=== PATIENT | male | born 1995 | race African-American/Black ===

== ENCOUNTER → 2017-06-27 | Outpatient (CLI) | payer OTHER ==
[~2017-06-27] MED LIST: AMPH20CA3 PO
== END | disposition home or self-care (01) ==
LOC: C.LAB 01:31
DX: Z02.83 Encounter for blood-alcohol and blood-drug test (principal)

== ENCOUNTER 2017-10-03 23:57 | Emergency (ER) | payer OTHER, BC ==
[~2017-10-03] VITALS: Ht 188 cm; Wt 148.8 kg
[2017-10-04 00:06] VITALS: TEMP 36.8; Ht 188 cm; Wt 148.8 kg
[2017-10-04] MEDS ORDERED: IBUPROFEN 600 MG TAB PO STA (00:17)
[2017-10-04] MEDS ORDERED: ACETAMINOPHEN 500 MG TAB PO STA (00:17)
[2017-10-04 01:44] VITALS: BP 118/86; PULSE 68; O2SAT 98
--- NOTE | 2017-10-04 07:18 | EMERGENCY ROOM VISIT NOTE ---
ED Visit Note First contact with patient: 00:11 CHIEF COMPLAINT: Wrist injury HISTORY OF PRESENT ILLNESS: This 21 year old male patient presents to the emergency department complaining of pain in the right wrist after injuring himself at work just prior to arrival. The patient is primarily having discomfort in the right fifth digit as well as the mid aspect of the right wrist. He is right-hand dominant. He is able to move the wrist but this does increase his discomfort. He states the pain is a 5/10 at rest and he has not taken anything [id number] for his symptoms. He does not have laceration, numbness, or paresthesias. He does not have previous injury to the wrist. He has not had anything [id number] for his discomfort as the injury occurred about 1 hour ago. REVIEW OF SYSTEMS: A 6 system review of systems was performed with positives and pertinent negatives in the HPI. ALLERGIES: Penicillin MEDICATIONS: No chronic medication PMH: No chronic medical disease SOCIAL HISTORY: Employed and lives locally PHYSICAL EXAM: Vital Signs: Reviewed Nurse's notes, vital signs stable. GENERAL : White male, in no acute distress, but appears to be in pain, well-developed, well-neurished. NEURO: Alert and oriented to person place and time. Normal sensation to light and sharp touch. MUSCULOSKELETAL: There is no deformity of the right wrist. There is tenderness and edema over 5th digit and mid aspect of the wrist. There is no snuff box tenderness. Range of motion is not significantly limited. There is no tenderness of the elbow, hand or fingers. Umbrella Tipper Machine strength 4/5. Radial pulse 2+. SKIN: Normal and intact. The hand is warm and well perfused with capillary refill less than 2 seconds. EMERGENCY DEPARTMENT COURSE: Physical exam and history were performed. Nursing notes and EMR were reviewed. Patient appears to have injured himself at work. X-rays of the hand and wrist were performed and reviewed by myself and my attending is showing no acute fracture or dislocation. I explained to the patient that his films will be reread in the morning by radiology. The patient will be treated conservatively with a splint and follow-up with Workmen's Compensation. If there is discrepancy in his films we will contact him in the morning. The patient was otherwise invited back to the ER with any new, worsening, or concerning symptoms and given instructions as below. Problem List Medical Problems: (1) ADHD (attention deficit hyperactivity disorder) Status: Chronic (2) Arm laceration Status: Resolved (3) Arm laceration Status: Resolved (4) Asthma, Unspecified Status: Chronic (5) Depression Status: Chronic (6) Facial trauma Status: Resolved (7) Head injury Status: Resolved (8) Head trauma Status: Resolved (9) Laceration of eyebrow Status: Resolved (10) Oppositional defiant disorder Status: Chronic (11) Status post fall Status: Resolved (12) Syncope and collapse Status: Resolved (13) Viral upper respiratory infection Status: Resolved Current/Historical Medications No Active Prescriptions or Reported Meds Allergies Coded Allergies: BEE STING (Unverified Allergy, Severe, SWELLING, 10/04/17) Penicillins (Unverified Allergy, Mild, 10/04/17) Banana (Unverified Allergy, Unknown, THROAT ITCHES, 10/04/17) Vital Signs Date Time Temp Pulse Resp B/P (MAP) Pulse Ox O2 Delivery O2 Flow Rate FiO2 10/04/17 01:44 68 18 118/86 98 Room Air 10/04/17 00:06 36.8 77 18 146/91 99 Room Air Medications Administered Medications (Trade) Dose Ordered Sig/Lois Route Start Time Stop Time Status Last Admin Dose Admin Acetaminophen (Tylenol Tab) 1,000 mg NOW STAT PO 10/04/17 00:17 10/04/17 00:18 DC 10/04/17 00:25 1,000 MG Ibuprofen (Motrin Tab) 600 mg NOW STAT PO 10/04/17 00:17 10/04/17 00:18 DC 10/04/17 00:25 600 MG Departure Information Impression Primary Impression: Injury of right wrist Additional Impression: Injury of right hand Dispostion Home / Self-Care Condition GOOD Prescriptions No Active Prescriptions or Reported Meds Forms HOME CARE DOCUMENTATION FORM, IMPORTANT VISIT INFORMATION Patient Instructions My [facility], ED RICE Additional Instructions You were seen and evaluated today on an emergency basis only. This is not a substitute for, or an effort to provide, complete comprehensive medical care. It is not possible to recognize and treat all injuries or illnesses in a single emergency department visit. For this reason it is recommended that you followup with your Workmen's Compensation provider this week for a recheck of your condition. For baseline pain relief you may alternate ibuprofen and acetaminophen every 4 hours for pain control. Take 600 mg ibuprofen (Advil) and then 4 hours later take 1000 mg acetaminophen (Tylenol). Do not take more than 3000 mg acetaminophen in a single day. Wear your wrist brace until otherwise instructed by Workmen's Compensation. You are welcome to return to the emergency department anytime with new, worsening, or concerning symptoms. Problem Qualifiers
--- NOTE | 2017-10-04 07:39 | DIAGNOSTIC IMAGING REPORT ---
RIGHT HAND 3 VIEWS, RIGHT WRIST 4 VIEWS HISTORY: Right wrist pain. Right hand/5th digit injury COMPARISON: None. FINDINGS: There is no fracture or dislocation. Mild soft tissue swelling at the fifth MCP joint. No radiopaque foreign bodies. IMPRESSION: No fractures within the right hand or right wrist. Electronically signed by: Eduardo Blue M.D. 10/04/2017 7:37 AM Dictated Date/Time: 10/04/2017 7:34 AM
== END 2017-10-04 01:47 | disposition home or self-care (01) ==
LOC: C.EDB 23:57 → C.EDA 10-04 01:47
DX: S69.91XA Unspecified injury of right wrist, hand and finger(s), initial encounter (principal); X58.XXXA Exposure to other specified factors, initial encounter; Y99.0 Civilian activity done for income or pay; F90.9 Attention-deficit hyperactivity disorder, unspecified type; J45.909 Unspecified asthma, uncomplicated; F32.9 Major depressive disorder, single episode, unspecified; F91.3 Oppositional defiant disorder; Z88.0 Allergy status to penicillin; Z91.018 Allergy to other foods; Z91.030 Bee allergy status